=== PATIENT | female | born 1970 | race African-American/Black ===

== ENCOUNTER 2017-01-04 20:07 | Emergency (ER) | payer MEDICAID ==
[~2017-01-04] VITALS: Ht 165.1 cm; Wt 63.5 kg
[2017-01-04] MEDS ORDERED: IBUPROFEN 600 MG TABLET PO ONE (21:15)
[2017-01-04] MEDS ORDERED: IBUPROFEN 600 MG TABLET ONE (21:21)
--- NOTE | 2017-01-04 21:56 | NUR ---
Patient discharged to home in stable conditon. Written and verbal after care instructions given. Patient verbalizes understanding of instructions.
== END 2017-01-04 21:57 | disposition home or self-care (01) ==
LOC: ER 20:09
DX: S13.9XXA Sprain of joints and ligaments of unspecified parts of neck, initial encounter (principal); S09.90XA Unspecified injury of head, initial encounter; R51 Headache; V43.52XA Car driver injured in collision with other type car in traffic accident, initial encounter; Y93.89 Activity, other specified; Y99.8 Other external cause status; Y92.89 Other specified places as the place of occurrence of the external cause
CPT/HCPCS: 70450; 99284; A4663

== ENCOUNTER 2019-06-18 19:03 | Emergency (ER) | payer MEDICAID ==
[~2019-06-18] VITALS: Ht 162.6 cm; Wt 49.0 kg
--- NOTE | 2019-06-18 19:46 | NUR ---
patient ambulated to restroom and provided urine sample. sample has been sent to the lab.
[2019-06-18 20:01] LABS: *BILIRUBIN,URIN NEGATIVE (NEGATIVE); *BLOOD, URINE 3+ (NEGATIVE); *CLARITY,URINE CLOUDY (CLEAR); *COLOR,URINE YELLOW (YELLOW); *KETONES,URINE TRACE (NEGATIVE); *UROBILINOGEN,URINE 0.2 E.U./dl (NORMAL); LEUKOCYTE ESTERASE ,URINE 3+ (NEGATIVE); NITRITE, URINE POSITIVE (NEGATIVE); PH,URINE 6.5 (5.0-8.0); UGLUCOSE NEGATIVE (NEGATIVE)
--- NOTE | 2019-06-18 20:07 | NUR ---
Dr. Larios at bedside
[2019-06-18] MEDS ORDERED: CEFTRIAXONE 1 G VIAL IM ONE (20:15)
[2019-06-18 20:21] LABS: BACTERIA,URINE MANY /HPF (NONE SEEN); SQUAMOUS EPITHELIAL CELL,UR MODERATE /HPF (NONE SEEN); WBC,URINE TNTC /HPF (0-3)
[2019-06-18] MEDS ORDERED: CEFTRIAXONE 1 G VIAL ONE (20:24)
[2019-06-18] MEDS ORDERED: LIDOCAINE HCL 1% 20 ML VIAL ONE (20:36)
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
[2019-06-18 20:50] VITALS: BP 121/74
== END 2019-06-18 20:45 | disposition home or self-care (01) ==
LOC: ER 19:05
DX: N39.0 Urinary tract infection, site not specified (principal); R51 Headache
CPT/HCPCS: 81000; 81001; 87077; 87086; 87186; 96372; 99283; J0696; J3490; A4663

== ENCOUNTER 2019-07-22 22:02 | Emergency (ER) | payer MEDICAID ==
[~2019-07-22] VITALS: Ht 165.1 cm; Wt 58.5 kg
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
--- NOTE | 2019-07-22 22:48 | NUR ---
WENT FOR CT SCAN.
[2019-07-22] MEDS ORDERED: ACETAMINOPHEN ES 500 MG TABLET ONE (22:58)
[2019-07-22] MEDS ORDERED: IBUPROFEN 600 MG TABLET ONE (22:59)
[2019-07-22] MEDS ORDERED: IBUPROFEN 600 MG TABLET PO ONE (23:00)
[2019-07-22] MEDS ORDERED: ACETAMINOPHEN ES 500 MG TABLET PO ONE (23:00)
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
[2019-07-22 23:17] VITALS: BP 112/77
== END 2019-07-22 23:20 | disposition home or self-care (01) ==
LOC: ER 22:03
DX: S13.4XXA Sprain of ligaments of cervical spine, initial encounter (principal); S09.90XA Unspecified injury of head, initial encounter; S49.92XA Unspecified injury of left shoulder and upper arm, initial encounter; S89.92XA Unspecified injury of left lower leg, initial encounter; V43.52XA Car driver injured in collision with other type car in traffic accident, initial encounter; Y93.89 Activity, other specified; Y92.410 Unspecified street and highway as the place of occurrence of the external cause; Y99.8 Other external cause status
CPT/HCPCS: 70450; A4663; A9150

== ENCOUNTER 2019-07-23 21:55 | Emergency (ER) | payer MEDICAID ==
[~2019-07-23] VITALS: Ht 167.6 cm; Wt 57.2 kg
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
--- NOTE | 2019-07-23 22:21 | NUR ---
Dr. Crawford on bedside for MSE.
[2019-07-23] MEDS ORDERED: KETOROLAC TROMETHAMINE 30 MG INJ ONE (22:27)
[2019-07-23] MEDS ORDERED: KETOROLAC TROMETHAMINE 30 MG INJ IM ONE (22:30)
--- NOTE | 2019-07-23 23:50 | NUR ---
Patient discharged to home in stable conditon. Written and verbal after care instructions given. Patient verbalizes understanding of instructions. Pt ambulated out of the ER with steady gait. All belongings with pt.
[2019-07-23 23:51] VITALS: BP 121/84
== END 2019-07-23 23:50 | disposition home or self-care (01) ==
LOC: ER 21:59
DX: S13.4XXA Sprain of ligaments of cervical spine, initial encounter (principal); V89.2XXA Person injured in unspecified motor-vehicle accident, traffic, initial encounter; Y93.89 Activity, other specified; Y92.89 Other specified places as the place of occurrence of the external cause; Y99.8 Other external cause status
CPT/HCPCS: 72040; 96372; 99283; J1885; A4663